=== PATIENT | male | born 1990 | race Caucasian/White ===

== ENCOUNTER 2017-08-17 21:36 | Emergency (ER) | payer OTHER ==
[2017-08-17 22:02] VITALS: TEMP 98.5
[2017-08-17] MEDS ORDERED: Sodium Chloride 0.9% 1,000 ML IV STA (22:17)
[2017-08-17 22:31] LABS: URINE BILIRUBIN NEGATIVE (NEGATIVE); URINE BLOOD LARGE (NEGATIVE); URINE CLARITY CLOUDY (Clear); URINE COLOR AMBER (YELLOW); URINE GLUCOSE (UA) 50 mg/dL (Normal); URINE LEUKOCYTE ESTERASE NEG Leu/uL (Negative); URINE PROTEIN 100 mg/dL (NEGATIVE); URINE UROBILINOGEN 0.2-1.0 mg/dL (0.2-1.0)
[2017-08-17 22:48] LABS: BASO % 0.5 % (0.0-2.0); EOS % 0.1 % (0.0-4.0); LYMPH # 0.7 K/uL (1.0-4.3); LYMPH % 6.6 % (20.0-40.0); MEAN CELL VOLUME 88.8 fl (80.0-94.0); MEAN CORPUSCULAR HEMOGLOBIN 31.3 pg (27.0-31.0); MEAN CORPUSCULAR HGB CONC 35.2 g/dL (33.0-37.0); MEAN PLATELET VOLUME 8.5 fl (7.2-11.7); MONO # 0.4 K/uL (0.0-0.8); NEUT # 8.9 K/uL (1.8-7.0); NEUT % 88.8 % (50.0-75.0); PLATELET COUNT 224 K/uL (130-400); RED CELL DISTRIBUTION WIDTH 14.2 % (11.5-14.5)
[2017-08-17 22:58] LABS: BLOOD UREA NITROGEN 17 mg/dl (9-20); CALCIUM 9.3 mg/dL (8.4-10.2); GFR AFRICAN-AMERICAN > 60; GFR NON-AFRICAN AMERICAN > 60
[2017-08-17 23:17] LABS: LYMPHOCYTE 5 % (20-50); MONOCYTE 1 % (0-10); NEUTROPHIL 90 % (42-75); PLATELET ESTIMATE NORMAL (NORMAL); REACTIVE LYMPHOCYTES 4 % (0-0); TOTAL CELLS COUNTED 100
[2017-08-17 23:19] LABS: STOMATOCYTES SLIGHT
--- NOTE | 2017-08-17 23:34 | CT ---
EXAM: CT Abdomen and Pelvis Without Intravenous Contrast CLINICAL HISTORY: 26 years old, male; Pain; Abdominal pain; Flank; Right; Additional info: Renal colic TECHNIQUE: Axial computed tomography images of the abdomen and pelvis without intravenous contrast. All CT scans at this facility use one or more dose reduction techniques, viz.: automated exposure control; ma/kV adjustment per patient size (including targeted exams where dose is matched to indication; i.e. head); or iterative reconstruction technique. Coronal and sagittal reformatted images were created and reviewed. COMPARISON: No relevant prior studies available. FINDINGS: Limitations: Lack of intravenous contrast. Lung bases: No acute findings. ABDOMEN: Liver: Fatty infiltration. Gallbladder and bile ducts: No calcified stones. No ductal dilation. Pancreas: Unremarkable. No ductal dilation. Spleen: No splenomegaly. Adrenals: No mass. Kidneys and ureters: No renal calculi. Mild pelvocaliectasis of RIGHT kidney. Mildly dilated RIGHT proximal ureter. 0.4 x 0.3 x 0.3 cm calculus within RIGHT mid ureter. Stomach and bowel: Probable underdistention of LEFT colon. No definite mural thickening. No obstruction. PELVIS: Appendix: Normal caliber. No inflammation. Bladder: Unremarkable. No stones. Reproductive: Unremarkable as visualized. ABDOMEN and PELVIS: Intraperitoneal space: No significant fluid collection. No free air. Bones/joints: Probable bone island. Mild degenerative disc disease within lower lumbar spine. No acute fracture. Soft tissues: Unremarkable. Vasculature: Unremarkable. No aneurysm. Lymph nodes: No pathologically enlarged lymph nodes. IMPRESSION: 1. RIGHT mid ureteral calculus with mild hydroureteronephrosis. 2. Incidental/non-acute findings are described above.
--- NOTE | 2017-08-17 23:57 | ED PDOC ---
HPI: Abdomen Time Seen by Provider: 08/17/17 22:03 Chief Complaint (Nursing): Abdominal Pain Chief Complaint (Provider): Right Sided Abdominal Pain History Per: Patient History/Exam Limitations: no limitations Onset/Duration Of Symptoms: Hrs (1 x) Current Symptoms Are (Timing): Still Present Severity: Mild Pain Scale Rating Of: 7 Location Of Pain/Discomfort: Other (right acute mid abdominal pain) Quality Of Discomfort: "Pain" Associated Symptoms: denies: Nausea, Vomiting, Diarrhea Alleviating Factors: None Additional History Per: Patient Additional Complaint(s): 26 y/o [place] male with a past medical history of kidney stones presents to the ED with right sided acute mid abdominal pain. He reports that the pain is a 7 out of 10 and radiates to the back. Patient has experienced one prior kidney stone episode and his current pain is consistent with the previous kidney stone episode. States he took Tylenol prior to arrival but there was no pain relief. Denies nausea, vomiting and diarrhea. Past Medical History Reviewed: Historical Data, Nursing Documentation, Vital Signs Vital Signs: Last Vital Signs Temp 98.5 F 08/17/17 21:58 Pulse 88 08/18/17 00:00 Resp 18 08/18/17 00:00 BP 131/74 08/18/17 00:00 Pulse Ox 99 08/18/17 02:27 - Medical History PMH: Kidney Stones - Surgical History Surgical History: No Surg Hx - Family History Family History: States: Unknown Family Hx - Social History Current smoker - smoking cessation education provided: No Alcohol: None Drugs: Denies - Home Medications Home Medications: Ambulatory Orders Medication Instructions Recorded Tamsulosin [Flomax] 0.4 mg PO DAILY #10 cap 08/17/17 - Allergies Allergies/Adverse Reactions: Allergies Allergy/AdvReac Type Severity Reaction Status Date / Time No Known Allergies Allergy Verified 08/17/17 22:02 Review of Systems ROS Statement: Except As Marked, All Systems Reviewed And Found Negative Gastrointestinal: Positive for: Abdominal Pain Physical Exam - Reviewed Nursing Documentation Reviewed: Yes Vital Signs Reviewed: Yes - Physical Exam Appears: Positive for: Uncomfortable Head Exam: Positive for: ATRAUMATIC, NORMAL INSPECTION, NORMOCEPHALIC Skin: Positive for: Normal Color, Warm, Dry Eye Exam: Positive for: Normal appearance Neck: Positive for: Normal, Painless ROM Cardiovascular/Chest: Positive for: Regular Rate, Rhythm Respiratory: Positive for: CNT, Normal Breath Sounds Gastrointestinal/Abdominal: Positive for: Normal Exam, Soft Extremity: Positive for: Normal ROM Neurologic/Psych: Positive for: Alert, Oriented (x 3) - Laboratory Results Result Diagrams: 08/17/17 22:30 08/17/17 22:30 - ECG O2 Sat by Pulse Oximetry: 99 (RA) Medical Decision Making Medical Decision Making: Time: 2209 Impression: acute renal colic Initial Plan: --Urine Dipstick --Urinalysis Time: 2216 Initial Plan: --Ketorolac 15 mg IVP STAT --CT ABD & PELVIS W/O PO OR IV CONT --Basic metabolic panel --CBC w/ differential --Sodium Chloride 1,000 mL --Heplock insertion Time: 2347 --Tamsulosin 0.8 mg PO STAT Time: 2332 FINDINGS: Limitations: Lack of intravenous contrast. Lung bases: No acute findings. ABDOMEN: Liver: Fatty infiltration. Gallbladder and bile ducts: No calcified stones. No ductal dilation. Pancreas: Unremarkable. No ductal dilation. Spleen: No splenomegaly. Adrenals: No mass. Kidneys and ureters: No renal calculi. Mild pelvocaliectasis of RIGHT kidney. Mildly dilated RIGHT proximal ureter. 0.4 x 0.3 x 0.3 cm calculus within RIGHT mid ureter. Stomach and bowel: Probable underdistention of LEFT colon. No definite mural thickening. No obstruction. PELVIS: Appendix: Normal caliber. No inflammation. Bladder: Unremarkable. No stones. Reproductive: Unremarkable as visualized. ABDOMEN and PELVIS: Intraperitoneal space: No significant fluid collection. No free air. PHUONG COHEN | Final Radiology Report CONFIDENTIALITY STATEMENT This report is intended only for use by the referring physician, and only in accordance with law. If you received this in error, call [phone]. Page 2 of 2 Bones/joints: Probable bone island. Mild degenerative disc disease within lower lumbar spine. No acute fracture. Soft tissues: Unremarkable. Vasculature: Unremarkable. No aneurysm. Lymph nodes: No pathologically enlarged lymph nodes. IMPRESSION: 1. RIGHT mid ureteral calculus with mild hydroureteronephrosis. 2. Incidental/non-acute findings are described above. --Labs showed nothing clinically abnormal. --Patient discharged with a prescription of Flomax and will return to urologist as advised. Scribe Attestation: Documented by Rosy Mary, acting as a scribe for Nirav Pantoja MD Provider Scribe Attestation: All medical record entries made by the Scribe were at my direction and personally dictated by me. I have reviewed the chart and agree that the record accurately reflects my personal performance of the history, physical exam, medical decision making, and the department course for this patient. I have also personally directed, reviewed, and agree with the discharge instructions and disposition. Disposition - Clinical Impression Clinical Impression: Ureteral calculus, right - Disposition Referrals: Александр Miramontes Jr., MD [Staff Provider] - Disposition Time: 00:13 Condition: IMPROVED Prescriptions: Tamsulosin [Flomax] 0.4 mg PO DAILY #10 cap Instructions: Kidney Stones (DC) Forms: [facility] ([place]ian)
[2017-08-18 00:03] VITALS: BP 131/74; PULSE 88; RESP 18
[2017-08-18 01:48] VITALS: O2SAT 99
== END 2017-08-18 00:13 | disposition home or self-care (01) ==
LOC: H.ER 21:36
DX: N13.2 Hydronephrosis with renal and ureteral calculous obstruction (principal); Z87.442 Personal history of urinary calculi
CPT/HCPCS: 74176; 80048; 81003; 85025; 96361; 96374; 99283; J1885; J7040